=== PATIENT | female | born 1995 ===

== ENCOUNTER 2020-01-22 06:00 | Day surgery (SDC) | payer OTHER ==
[2020-01-22] MEDS ORDERED: NEURONTIN600 M1 PO (14:53)
[2020-01-22] MEDS ORDERED: COLACE100 MG PO (14:53)
[2020-01-22] MEDS ORDERED: PERCOCET 5-3251 EACH PO (14:54)
== END 2020-01-22 17:45 | disposition home or self-care (01) ==
LOC: CIR.AMB 06:00
PROVIDERS: ATTEND Surgery
DX: K80.10 Calculus of gallbladder with chronic cholecystitis without obstruction (principal); Z20.828 Contact with and (suspected) exposure to other viral communicable diseases